=== PATIENT | male | born 1945 | race Hispanic/Latino ===

== ENCOUNTER 2019-04-28 07:45 | Emergency (ER) | payer MEDICARE, MEDICAID ==
[~2019-04-28] VITALS: Ht 175.3 cm; Wt 85.0 kg
[~2019-04-28 07:45] MED LIST: ACID CONTROL MA20 MG PO; ACTOS30 MG OR; ASPIRIN ADULT L81 M2 PO; ATORVASTATIN CA10 MG PO; CELEBREX100 M1 PO; CIPRO500 MG PO; GLUCOTROL5 MG PO; LEVEMIR FL100 UNIT/M SC; LEVOTHYROXIN75 MCG PO; LISINOPRIL10 MG PO; LORTAB 5 OR; NOVOLIN 70/30 SC; POOR HISTORIAN; PRAVASTATIN SOD20 MG PO
[2019-04-28 08:07] LABS: HEMATOCRIT 43.1 % (39.0-50.0); IMMATURE GRANULOCYTES 0.3 % (0.0-5.0); MEAN CELL VOLUME 86.2 fL CALC (80.0-100.0); MEAN CORPUSCULAR HGB CONC 34.8 g/L CALC (32.0-36.0); NEUT# 5.14 thou/uL (1.82-7.42); RED CELL DISTRI WIDTH 12.9 % (11.5-15.5)
[2019-04-28 08:36] LABS: ANION GAP 15 (6-22 (CALC)); BUN 16 mg/dL (8-23); BUN/CREATININE RATIO 21 (12-20 (CALC)); CARBON DIOXIDE 25 mmol/l (22-30); CHLORIDE 103 mmol/l (95-108); CREATININE 0.8 mg/dL (0.7-1.3); GFR > 60 ML/MIN (>=60 (CALC)); GFR FOR AFR.AMER. > 60 ML/MIN (>=60 (CALC)); POTASSIUM 3.8 mmol/l (3.5-5.1); SODIUM 139 mmol/l (137-146)
[2019-04-28 09:03] VITALS: BP 145/66
[2019-04-28] MEDS ORDERED: NITROGLYCERIN0.4 MG PO (09:12)
== END 2019-04-28 09:18 | disposition left against medical advice (07) ==
LOC: ED 07:45
PROVIDERS: Family Medicine
DX: R07.89 Other chest pain (principal); I10 Essential (primary) hypertension; E11.9 Type 2 diabetes mellitus without complications; Z79.4 Long term (current) use of insulin; Z91.19 Patient's noncompliance with other medical treatment and regimen

== ENCOUNTER 2020-09-04 04:06 | Emergency (ER) | payer MEDICARE ==
[~2020-09-04] VITALS: Ht 175.3 cm; Wt 81.8 kg
[~2020-09-04 04:06] MED LIST changes: +NITROGLYCERIN0.4 MG PO
[2020-09-04 04:33] LABS: HEMATOCRIT 44.1 % (39.0-50.0); HEMOGLOBIN 14.7 g/dl (14.0-18.0); IMMATURE GRANULOCYTES 0.8 % (0.0-5.0); MEAN CELL VOLUME 87.8 fL CALC (80.0-100.0); MEAN CORPUSCULAR HGB 29.3 pG CALC (26.0-32.0); MEAN CORPUSCULAR HGB CONC 33.3 g/dL CAL (32.0-36.0); NEUT# 6.28 thou/uL (1.82-7.42); RED BLOOD COUNT 5.02 mill/uL (4.70-6.10); RED CELL DISTRI WIDTH 13.3 % (11.5-15.5)
[2020-09-04 04:49] LABS: ALBUMIN 4.4 g/dL (3.2-5.0); ALKALINE PHOSPHATASE 66 u/l (38-126); AMYLASE 64 u/l (30-110); ANION GAP 16 (6-22 (CALC)); BILIRUBIN, TOTAL 0.6 mg/dL (0.0-1.4); BUN 25 mg/dL (8-23); BUN/CREATININE RATIO 22 (12-20 (CALC)); CHLORIDE 108 mmol/l (95-108); CREATININE 1.1 mg/dL (0.7-1.3); ETHYL ALCOHOL 150 mg/dl (0-30); GFR > 60 ML/MIN (>=60 (CALC)); GFR FOR AFR.AMER. > 60 ML/MIN (>=60 (CALC)); LIPASE 118 u/l (23-300); POTASSIUM 3.9 mmol/l (3.5-5.1); SGOT/AST 20 u/l (19-48); SODIUM 139 mmol/l (137-146); TOTAL PROTEIN 7.5 g/dL (6.3-8.2)
[2020-09-04 04:50] LABS: ACT PARTIAL THROMBO TIME 19.4 SECONDS (20.0-32.5); INTERNATIONAL NORMALIZED RATIO 1.1 RATIO (0.7-1.3); PROTHROMBIN TIME 10.8 SECONDS (9.0-12.5)
[2020-09-04 04:54] LABS: CARBON DIOXIDE 19 mmol/l (22-30)
[2020-09-04 05:17] LABS: URINE BILIRUBIN - DIPSTICK NEGATIVE (NEGATIVE); URINE BLOOD DIPSTICK TRACE-INTACT (NEGATIVE); URINE COLOR YELLOW; URINE GLUCOSE - DIPSTICK >=1000 mg/dL (NEGATIVE); URINE KETONE 15 mg/dL (NEGATIVE); URINE LEUK ESTERASE NEGATIVE (NEGATIVE); URINE NITRITE - DIPSTICK NEGATIVE (Negative); URINE PROTEIN - DIPSTICK NEGATIVE (NEG-TRACE); URINE UROBILINOGEN - DIPSTICK 0.2 E.U./dL (0.2)
[2020-09-04 06:30] VITALS: BP 131/60
== END 2020-09-04 09:00 | disposition short-term general hospital (02) ==
LOC: ED 04:06
DX: S22.059A Unspecified fracture of T5-T6 vertebra, initial encounter for closed fracture (principal); S80.212A Abrasion, left knee, initial encounter; S80.211A Abrasion, right knee, initial encounter; S50.312A Abrasion of left elbow, initial encounter; S40.011A Contusion of right shoulder, initial encounter; R07.89 Other chest pain; F10.129 Alcohol abuse with intoxication, unspecified; E11.9 Type 2 diabetes mellitus without complications; I10 Essential (primary) hypertension; W18.30XA Fall on same level, unspecified, initial encounter; Y93.89 Activity, other specified; Y92.009 Unspecified place in unspecified non-institutional (private) residence as the place of occurrence of the external cause
CPT/HCPCS: Q9967